=== PATIENT | male | born 1995 | race Caucasian/White ===

== ENCOUNTER 2020-03-17 15:32 | Emergency (ER) | payer MEDICAID ==
[~2020-03-17] VITALS: Ht 180.3 cm; Wt 79.4 kg
[~2020-03-17 15:32] MED LIST: ALBU-136 IH
[2020-03-17 15:36] VITALS: BP 138/69
--- NOTE | 2020-03-17 15:40 | NUR ---
Pt taken to bed 11.
--- NOTE | 2020-03-17 15:50 | NUR ---
24 YEAR OLD MALE COMPLAINS OF ABSCESS ON LOWER BACK NEAR BUTTOCKS. SITE IS INFLAMMED, REDDENED, ROUND 2 INCH. PT STATES STARTED 3 DAYS AGO BUT NOT KNOW CAUSE. PT AOX4, BREATHING EVEN AND UNLABORED, SKIN WARM AND DRY. BED IN LOWEST POSITION, LOCKED, BED RAIL UPX1. PMH - DENIES ALLERGIES - PCN
[2020-03-17] MEDS ORDERED: LIDOCAINE 2% 1000 MG/50 ML VIAL INJ ONE (16:10)
--- NOTE | 2020-03-17 16:40 | NUR ---
PROCEDURE PERFORMED BY HOLLIE RICO, WOUND PACKED, AND DRESSED. PT TOLERATED PROCEDURE WELL
--- NOTE | 2020-03-17 16:55 | NUR ---
Patient discharged with v/s stable. Written and verbal after care instructions about abscess given and explained. Patient alert, oriented and verbalized understanding of instructions. Ambulatory with steady gait. All questions addressed prior to discharge. ID band removed. Patient advised to follow up with PMD. Rx of ibuprofen and bactrim given. Patient educated on indication of medication including possible reaction and side effects. Opportunity to ask questions provided and answered.
[2020-03-17 16:59] VITALS: BP 135/65
== END 2020-03-17 16:55 | disposition home or self-care (01) ==
LOC: MED 15:32
DX: L02.212 Cutaneous abscess of back [any part, except buttock and flank] (principal); J45.909 Unspecified asthma, uncomplicated; Z88.0 Allergy status to penicillin; Z88.6 Allergy status to analgesic agent; Z79.899 Other long term (current) drug therapy
CPT/HCPCS: 10060; 99283; J2001

== ENCOUNTER 2020-03-19 13:24 | Emergency (ER) | payer MEDICAID ==
[~2020-03-19] VITALS: Ht 167.6 cm; Wt 79.4 kg
[2020-03-19 13:27] VITALS: BP 135/72
--- NOTE | 2020-03-19 13:55 | NUR ---
24 Y/O MALE FOLLOWING UP FOR I&D THAT WAS PERFORMED TWO DAYS AGO ON LEFT UPPER BUTTOCKS. PACKING STILL PRESENT WITH A MODERATE AMOUNT OF SEROUSSANGENOUS DRAINAGE PRESENT ON GAUZE. PATIENT STATES PAIN IS TOLERABLE. NO REDNESS, SWELLING NOTED.
[2020-03-19] MEDS ORDERED: LIDOCAINE MPF 1% 10 MG/ML VIAL INJ ONE (14:05)
--- NOTE | 2020-03-19 14:12 | NUR ---
ERMD AT BEDSIDE RE-PACKING WOUND
[2020-03-19 14:28] VITALS: BP 135/72
--- NOTE | 2020-03-19 14:29 | NUR ---
Patient discharged with v/s stable. Written and verbal after care instructions given and explained. Patient verbalized understanding. Ambulatory with steady gait. All questions addressed prior to discharge. Advised to follow up with PMD.
== END 2020-03-19 14:22 | disposition home or self-care (01) ==
LOC: MED 13:24
DX: L05.01 Pilonidal cyst with abscess (principal); J45.909 Unspecified asthma, uncomplicated; Z88.0 Allergy status to penicillin; Z79.899 Other long term (current) drug therapy; Z88.8 Allergy status to other drugs, medicaments and biological substances
CPT/HCPCS: 99282; J2001

== ENCOUNTER 2020-03-22 14:29 | Emergency (ER) | payer MEDICAID ==
[~2020-03-22] VITALS: Ht 167.6 cm; Wt 77.1 kg
[2020-03-22 14:31] VITALS: BP 136/77
--- NOTE | 2020-03-22 14:42 | NUR ---
PT RETURNING TO ER FOR WOUND CHECK TO I&D SITE ON TAILBONE. WOUND C/D/I. PACKING REMAINS IN PLACE. PT DENIES PAIN.
--- NOTE | 2020-03-22 14:45 | NUR ---
DR. MCGEE EVALUATING PT AT BEDSIDE
[2020-03-22 15:00] VITALS: BP 136/77
== END 2020-03-22 15:00 | disposition home or self-care (01) ==
LOC: MED 14:29
DX: L02.31 Cutaneous abscess of buttock (principal); J45.909 Unspecified asthma, uncomplicated; Z79.899 Other long term (current) drug therapy; Z88.0 Allergy status to penicillin; Z88.8 Allergy status to other drugs, medicaments and biological substances
CPT/HCPCS: 99282